=== PATIENT | female | born 1960 | race Caucasian/White ===

== ENCOUNTER 2017-08-16 13:14 | Emergency (ER) | payer OTHER ==
[2017-08-16] MEDS: IBUPROFEN 600 MG TAB PO ×3 (13:30)
== END 2017-08-16 14:53 | disposition home or self-care (01) ==
LOC: M ED 13:14
DX: S16.1XXA Strain of muscle, fascia and tendon at neck level, initial encounter (principal); S80.01XA Contusion of right knee, initial encounter; V89.9XXA Person injured in unspecified vehicle accident, initial encounter; Y92.410 Unspecified street and highway as the place of occurrence of the external cause; Y93.89 Activity, other specified; Y99.8 Other external cause status; E11.9 Type 2 diabetes mellitus without complications; E07.9 Disorder of thyroid, unspecified
CPT/HCPCS: 73564

== ENCOUNTER → 2018-11-11 | Outpatient (CLI) | payer OTHER ==
[~2018-11-11] MED LIST: CYCL10TA PO; IBUP-1022 PO
[2018-11-11 11:54] LABS: BASO # 0.1 10^3/uL (0.0-0.2); EOS # 0.6 10^3/uL (0.0-0.50); HEMATOCRIT 33.9 % (36.0-47.0); HEMOGLOBIN 10.9 g/dl (12.0-15.5); LYMPH # 2.6 10^3/uL (1.5-4.5); LYMPH % 28.6 % (24.0-44.0); MEAN CORPUSCULAR HEMOGLOBIN 28.5 pg (27.0-33.0); MEAN CORPUSCULAR HGB CONC 32.2 g/dl (32.0-36.5); MEAN CORPUSCULAR VOLUME 88.5 fl (80.0-96.0); MONO # 0.6 10^3/uL (0.0-0.8); MONO % 6.8 % (0.0-5.0); NEUTROPHILS # 5.1 10^3/uL (1.8-7.7); NEUTROPHILS % 56.2 % (36.0-66.0); PLATELET COUNT, AUTOMATED 224 10^3/uL (150-450); RED BLOOD COUNT 3.83 10^6/uL (4.00-5.40)
[2018-11-11 12:08] LABS: CALCIUM LEVEL 8.7 MG/DL (8.5-10.1); CREATININE FOR GFR 1.27 MG/DL (0.55-1.30); GLOMERULAR FILTRATION RATE 46.2 (>51); POTASSIUM SERUM 5.1 MEQ/L (3.5-5.1)
== END ==
LOC: M LAB 10:47
PROVIDERS: ATTEND Surgery Vascular Surgery
DX: I70.244 Atherosclerosis of native arteries of left leg with ulceration of heel and midfoot (principal); M79.672 Pain in left foot

== ENCOUNTER → 2018-11-21 | Outpatient (CLI) | payer OTHER ==
[~2018-11-21] MED LIST changes: +CLOP75TA2 PO; +CLOPIDOGREL 75 MG TAB As Ordered ONE; +CLOPIDOGREL 75 MG TAB PO SCH; +HEPARIN 1,000 UNITS/ML 10ML VIAL (FOR RADIOLOGY& DIALYSIS ONLY) As Ordered ONE; +ISOVUE-300 61% 100ML VIAL (Q9967) As Ordered ONE; +ISOVUE-370 76% 100ML VIAL (Q9967) As Ordered ONE; +LIDOCAINE 2% MDV 20 ML VIAL As Ordered ONE; +MIDAZOLAM INJ 2 MG/2 ML VIAL (J2250) As Ordered ONE; +NITROGLYCERIN IN D5W 25MG/250ML (100MCG/ML) As Ordered ONE; +fentaNYL 100 MCG/2 ML INJECTION (J3010) As Ordered ONE
--- NOTE | 2018-11-22 12:22 | ROOPDOC ---
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 Ultrasound guided access right common femoral artery 2. Iliofemoral arteriogram and left lower extremity runoff 3. Select views of left popliteal and peroneal arteries 4. Angioplasty left superficial femoral artery with 5 x 200 mustang balloon 5. Angioplasty left popliteal artery and tibioperoneal trunk with 4 x 200 mustang balloon 6. Angioplasty left peroneal artery with 3 x 220 giovanni balloon 7. Completion arteriograms 8. Mynx closure right common femoral artery SURGEON: Aaron Caicedo MD ANESTHESIA: 10cc lidocaine local anesthesia; monitored intavenous conscious sedation was administered under the direct supervision of Aaron Caicedo MD. The patient was independently monitored by a nurse assigned to the radiology departmentusing automated blood pressure, EKG, and pulse oximetry. The full record of sedation in housed in the hospital information system. The sedation start time was 09:37, the end time was 11:21, 1 mg IV versed and 100mcg IV fentanyl were given during the procedure and the patient tolerated this well with no complications. CONTRAST: 58cc omnipaque INDICATION FOR PROCEDURE: Ms Joiner is a very pleasant 58yo patient with diabetes, neuropathy, atherosclerosis with bilateral lower extremity ABIs of 0.5, and non-healing wounds of the left foot and ankle. Risks, benefits, and alternatives were explained to the patient and her family regarding an arteriogram and possible intervention of the left lower extremity. They are agreeable to proceed, and informed consent was obtained. The patient had a slight elevation of her creatinine on pre-procedure labs, and a GFR of 46. Therefore, we hydrated her with normal saline verna-procedure and planned to use as little IV contrast as possible to diminish the chance of contrast induced nephropathy in this patient who already had some insufficiency. We will not perform a run-off of the right lower extremity today, but we can certainly discuss coming back to perform imaging and intervention for the right leg another day. Since she has wounds on the left lower extremity, this is the priority for now. INTERPRETATION: 1. There is calcification and mild disease of the bilateral iliofemoral segments, but not flow limiting. 2. The left common femoral artery is widely patent with good flow into the widely patent profunda and proximal superficial femoral artery. 3. The left mid and distal superficial femoral artery has significant flow limiting plaque with several focal areas of 70-98% stenosis. 4. There is a 1cm complete occlusion of the mid popliteal artery. 5. The tibioperoneal trunk has some mild stenoses throughout with runoff through only a mildly stenotic peroneal artery. The origin of the anterior tibial artery is not visualized and the origin of the posterior tibial artery is patent but occludes a few cm from its origin, and neither reconstitute distally. There are extensive collaterals from the profunda, proximal superficial femoral artery and proximal popliteal artery supplying the distal popliteal artery and peroneal artery, and significant wispy calf collateral circulation is noted due to anterior and posterior tibial artery occlusions. 6. Post angioplasty, the superficial femoral and popliteal arteries, tibioperoneal trunk, and peroneal artery had no significant residual stenosis, and no dissection or contrast extravasation was noted on completion arteriograms. PROCEDURE: The patient was brought to the angiographic suite in stable condition and placed supine on the fluoroscopic table. Her bilateral groins were prepped and draped in a sterile fashion. Sedation was administered without complication. A timeout was performed. Local anesthesia was administered to the right groin subcutaneous tissue. Ultrasound was used to identify the right common femoral artey and guide access with a microneedle. A wire was passed through this access and placement was confirmed with fluoroscopy. A microsheath was placed and the wire was exchanged for a long stiff glidewire. A 6 stateless sheath was placed over the wire using a seldinger technique and flushed with saline. 5000 units of heparin was administered IV. An omniflush catheter was advanced over the wire into the distal aorta. An iliofemoral arteriogram was performed and the vessels were mildly diseased but patent. We then went up and over the bifurcation with the glidewire and catheter and selected the left external iliac artery. Arteriogram of the femoral vessels showed the left common femoral, profunda, and superficial femoral artery were patent. We selected the left superficial femoral artery and advanced the catheter. An arteriogram showed severe mid and distal superficial femoral artery disease with 70-98% stenoses. The wire was carefully advanced and then we exchanged our sheath over the wire for a 45cm 6 stateless sheath up and over the bifurcation. The sheath was flushed with saline. A long glidecath was used with the glidewire to cross through to the popliteal artery. Arteriogram revealed an occlusion in the mid popliteal artery and severe tibial disease with the peroneal as the main runoff to the ankle. With care, we were able to cross the occlusion in the popliteal artery and advance into the peroneal artery and confirm with arteriogram that we were in the true lumen. After removing the catheter, a 5 x 200mustang was selected for angioplasty of the mid and distal SFA. 3 minute inflations x2 were performed, and afterwards, arteriogram showed that the vessel was widely patent with no significant residual stenosis, no dissection, no extravasation. A 4 x 200 mustang balloon was selected for angioplasty of the popliteal artery and tibioperoneal trunk. A 3 minute inflation was performed, and completion arteriogram revealed the vessel was widely patent with no significant residual stenosis, no dissection, no extravasation. We then advanced the glidecath over the wire and exchanged for an 0.18 wire. We selected a 3 x 220 giovanni balloon and performed two 3 minute inflations in the entire peroneal artery. Afterwards, arteriogram showed that the vessel was widely patent with no significant residual stenosis, no dissection, no extravasation. The vessel filled the diminutive dorsal pedis artery through collaterals at the ankle, but no in-line flow was established. The anterior tibial artery was completely occluded and we could not identify its origin to attempt to cross it. The glidecath was advanced into the tibioperoneal trunk and a quick arteriogram identified the origin of the posterior tibial artery. We advanced into the origin, and exchanged the catheter for an 0.18 rubicon crossing catheter. Initially, the wire and catheter passed easily to the mid calf, but there was no blood return when the wire was removed and arteriogram confirmed we were extraluminal. We then attempted to cross the vessel for the next 30 minutes, but were unsuccessful. To relieve any tibial artery spasm that may be present after intervention and treat blood pressure 195/95, 200mcg IV nitroglycerin was administered through the catheter into the left lower extremity and blood pressure following this was moderately improved. Final arteriograms showed good flow through the SFA, popliteal, peroneal artery to the ankle and collaterals to the foot circulation and no extravasation from attempts to cross the posterior tibial artery. We exchanged the sheath over the wire for a short 6 stateless sheath and this was flushed with saline. A mynx closure device was deployed under fluoroscopy and good hemostasis was noted. Pressure was held for 5 minutes, sterile dressings were applied. The patient was transferred back to [facility] in stable condition and hydration continued during her 4 hour post procedure bedrest. Her foot post procedure was very warm, pink, and the DP signal was biphasic, the PT signal was monophasic, capillary refill was < 1 sec. She was given one dose of plavix in [facility], and a prescription for plavix was given. We will see her back in a week to check her groin access site, her perfusion to her foot, and discuss timing for her right lower extremity intervention. She should continue her followup at the wound care center for her left foot/ankle wounds. ESTIMATED BLOOD LOSS: Approximately 10 mL. COMPLICATIONS: none. AARON CAICEDO MD Nov 22, 2018 12:22
== END | disposition home or self-care (01) ==
LOC: M IRPRO 07:58
PROVIDERS: ATTEND Surgery Vascular Surgery
DX: I70.245 Atherosclerosis of native arteries of left leg with ulceration of other part of foot (principal); I70.92 Chronic total occlusion of artery of the extremities; L97.529 Non-pressure chronic ulcer of other part of left foot with unspecified severity; E11.40 Type 2 diabetes mellitus with diabetic neuropathy, unspecified; E11.51 Type 2 diabetes mellitus with diabetic peripheral angiopathy without gangrene
CPT/HCPCS: 37224; 37228; 75716; 75774; 99152; 99153; C1725; C1760; C1769; C1887; C1894; J2250; J3010; Q9967

== ENCOUNTER → 2019-02-24 | Outpatient (CLI) | payer OTHER ==
[~2019-02-24] MED LIST changes: +ACET-683 PO; +ATOR1TAB21 PO; -CLOPIDOGREL 75 MG TAB As Ordered ONE; -CLOPIDOGREL 75 MG TAB PO SCH; +GABA-845 PO; +GLYB5TA PO; -ISOVUE-300 61% 100ML VIAL (Q9967) As Ordered ONE; +ISOVUE-300 61% 50ML VIAL (Q9967) As Ordered ONE; -ISOVUE-370 76% 100ML VIAL (Q9967) As Ordered ONE; +LEVO50TA5 PO; +LOSA100T50 PO
[2019-02-24 08:44] LABS: HEMATOCRIT 36.8 % (36.0-47.0); HEMOGLOBIN 12.1 g/dl (12.0-15.5); MEAN CORPUSCULAR HEMOGLOBIN 28.7 pg (27.0-33.0); MEAN CORPUSCULAR HGB CONC 32.9 g/dl (32.0-36.5); MEAN CORPUSCULAR VOLUME 87.4 fl (80.0-96.0); PLATELET COUNT, AUTOMATED 218 10^3/uL (150-450); RED BLOOD COUNT 4.21 10^6/uL (4.00-5.40); WHITE BLOOD COUNT 7.9 10^3/uL (4.0-10.0)
[2019-02-24 09:05] LABS: CALCIUM LEVEL 9.3 MG/DL (8.5-10.1); CREATININE FOR GFR 1.25 MG/DL (0.55-1.30); POTASSIUM SERUM 4.4 MEQ/L (3.5-5.1)
--- NOTE | 2019-02-24 12:24 | ROOPDOC ---
[facility] Report Of Operation Report of Operation DATE OF PROCEDURE: 02/24/19 PREPROCEDURE DIAGNOSES: Atherosclerosis of the [place] vessels of the right lower extremity POSTPROCEDURE DIAGNOSES: Same PROCEDURE: 1. Ultrasound-guided access left common femoral artery 2. Right lower extremity arteriogram with runoff 3. Selective views from tibioperoneal trunk 4. Angioplasty of the right superficial femoral artery and proximal popliteal artery with a 5 x 200 Eastpoint balloon 5. Angioplasty of the right popliteal artery with a 4 x 100 Charlie balloon 6. Angioplasty of the tibioperoneal trunk and peroneal artery with a 2 x 220 Charlie balloon 7. Completion arteriograms 8. Minx closure left common femoral artery SURGEON: Aaron Caicedo MD ANESTHESIA: Local anesthesia with 2% lidocaine 10 mL. Moderate intravenous conscious sedation was supervised by Dr. Caicedo. The patient was independently monitored by a registered nurse assigned to the Department of radiology using automated blood pressure, EKG, and pulse oximetry. The detailed conscious sedation record is permanently stored in the hospital information system. The following is a conscious sedation records. INDICATION FOR PROCEDURE: Ms. Joiner is a very pleasant 58-year-old patient who is status post arteriogram and intervention of the left lower extremity for atherosclerosis of the [place] arteries and nonhealing wounds, and now her once if healed. The patient also had severe [place] artery disease on the right lower extremity and we will return today for an arteriogram with potential intervention. Her creatinine is 1.49 and we will gently hydrate her throughout the procedure and after, and avoid using much contrast. Risks benefits alternatives to the procedure were explained to the patient and her family and she was agreeable to proceed. Informed consent was obtained. INTERPRETATION: 1. The common femoral artery, profunda and proximal superficial femoral artery are widely patent. There are several areas of 30-40% calcified focal stenosis in the proximal mid and distal superficial femoral artery. There is also some narrowing noted in the mid and distal popliteal artery, also calcified. 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 They are mostly filled from collaterals at the ankle from a narrow peroneal artery, with several areas of 70-80% stenosis in the tibioperoneal trunk noted to limit peroneal inflow. 2. After angioplasty, there is widely patent flow through the superficial femo ral artery. Mild dissection was noted in 2 places after initial angioplasty, which significantly improved after a second three-minute angioplasty and was no longer flow-limiting. No stent was required. 3. After angioplasty, there is widely patent inflow through the popliteal artery. No dissection, extravasation noted. 4. After initial angioplasty of the tibioperoneal trunk in the peroneal, there was some spasm in the peroneal artery and dissection in the mid tibialperoneal trunk were the heaviest calcification and stenosis was initially noted. After repeat angioplasty, there is a significant improvement in flow through the tibioperoneal trunk into the peroneal artery with excellent runoff to the foot filling the dorsal pedis artery and the plantar vessels through collateral circulation. PROCEDURE: The patient was brought to the angiographic suite in stable condition. Her bilateral groins were prepped and draped in a sterile fashion. Sedation and IV fluids are administered without complication. A timeout was performed. Local anesthesia was administered to the skin and subcutaneous tissue in the left groin and a microneedle was used to access left common femoral artery under ultrasound guidance. A micro-sheath was placed and through this a Glidewire was advanced into the aorta under fluoroscopic guidance. Following this, we placed a 5 Bhutanese sheath and flushed the sheath with saline. Next, we went up and over the bifurcation with a Glidewire and omniflush catheter. Arteriograms were performed where we noted several areas of focal stenosis in the SFA, popliteal, the tibioperoneal trunk and single-vessel runoff to the foot through the peroneal artery. We went up and over the bifurcation with a 45 cm 5 Bhutanese sheath and flushed the sheath with saline. A 5 x 200 Eastpoint balloon was advanced across the areas of stenosis in the SFA and proximal popliteal artery and a three-minute inflations was performed. Following this, there were 2 areas of focal dissection appeared to be flow-limiting. A second three-minute inflati ons was performed low atmospheres, followed by which the dissections were significantly improved and no longer flow-limiting. Stents were not needed. Next, we were able to cross down through the popliteal artery, the tibioperoneal trunk, into the peroneal artery with the 18 wire in a rubicon catheter. Next, we angioplastied the tibioperoneal trunk and the peroneal artery with a 2 x 220 Charlie balloon. After three-minute inflations, there was significant dissection of the heaviest area of calcification in the mid tibioperoneal trunk and a second three-minute inflations was done. Following this, dissection was significantly improved and no longer flow-limiting and there was excellent in line flow to the foot. We then angioplastied the popliteal artery with a 4 x 100 Charlie balloon for three-minute inflation and found significant in line flow from the femoral vessel all the way to the foot with good collateral filling into the plantar vessels from the distal peroneal artery. There is also good collateralization from the genicular vessels around the knee to the mid and lateral calf or the anterior tibial and posterior tibial are occluded. Overall, this significantly improved in line flow to the foot. We were not able to cross into the anterior tibial artery or through the posterior tibial artery despite aggressive attempts, and these are likely chronically occluded. This concluded her procedure. We exchanged her sheath for short 6 Bhutanese sheath into play to minx closure device with good hemostasis. Pressure was held for 10 minutes and sterile dressings were applied. The patient was taken to recovery in stable condition and she will be monitored for 4 hours postprocedure on bed rest. ESTIMATED BLOOD LOSS: Approximately 5 mL. COMPLICATIONS: None. AARON CAICEDO MD Feb 24, 2019 12:24
[2019-02-24 16:00] VITALS: BP 168/64
== END ==
LOC: M IRPRO 07:47
PROVIDERS: ATTEND Surgery Vascular Surgery
DX: I70.201 Unspecified atherosclerosis of native arteries of extremities, right leg (principal); I70.92 Chronic total occlusion of artery of the extremities
CPT/HCPCS: 37224; 37228; 75710; 80048; 85027; 99152; 99153; C1725; C1760; C1769; C1887; C1894; J2250; J3010; Q9967